=== PATIENT | female | born 1955 | race African-American/Black ===

== ENCOUNTER 2019-02-21 10:09 | Inpatient (IN) | payer OTHER ==
[~2019-02-21] VITALS: Ht 177.8 cm; Wt 81.6 kg
[2019-03-14] MEDS ORDERED: FEOSOL325 MG PO (15:08)
[2019-03-14] MEDS ORDERED: PENTOXIFYLLINE400 MG PO (15:08)
[2019-03-14] MEDS ORDERED: FOLIC ACID1 MG PO (15:08)
[2019-03-18] MEDS ORDERED: ULTRACET PO (11:16)
[2019-03-18] MEDS ORDERED: INTESTINEX680 M1 PO (11:17)
== END 2019-03-18 12:30 | disposition home or self-care (01) | DRG 331 ==
LOC: SURG 03-14 08:31 → O/R 03-14 08:31 → SURG 03-14 09:45
PROVIDERS: ADMIT Surgery
PROC: 07BB4ZX Excision of Mesenteric Lymphatic, Percutaneous Endoscopic Approach, Diagnostic (ICD-10-PCS; 2019-03-14)
PROC: 0DTF4ZZ Resection of Right Large Intestine, Percutaneous Endoscopic Approach (ICD-10-PCS; principal; 2019-03-14 10:15)
DX: D12.2 Benign neoplasm of ascending colon (principal); R59.0 Localized enlarged lymph nodes; K63.89 Other specified diseases of intestine; R33.8 Other retention of urine; D50.0 Iron deficiency anemia secondary to blood loss (chronic)